=== PATIENT | female | born 1995 | race Hispanic/Latino ===

== ENCOUNTER 2017-06-21 22:56 | Inpatient (IN) | payer BC ==
[~2017-06-21 22:56] MED LIST: Bupivacaine HCl 0.5%/Epinephrine 1:200,000/PF 30 ml Vial ONE
[2017-06-22 00:03] VITALS: BMI 33.7
[2017-06-22] MEDS: Lactated Ringer's 1,000 ML IV SCH ×4 (00:20→18:12)
[2017-06-22] MEDS ORDERED: LR / Pitocin 40 units/1000 ml 1,000 ML IV PRN (02:03)
[2017-06-22] MEDS ORDERED: Ibuprofen 800 MG TAB PO PRN (02:03)
[2017-06-22] MEDS ORDERED: Diphenoxylate HCl/Atropine Tablet PO PRN (02:03)
[2017-06-22] MEDS ORDERED: Lidocaine 1% (PF) 30 ML VIAL SC PRN (02:03)
[2017-06-22] MEDS ORDERED: Misoprostol 200 MCG TAB PR PRN (02:03)
[2017-06-22] MEDS ORDERED: Acetaminophen 500 MG TAB PO PRN (02:03)
[2017-06-22] MEDS ORDERED: Ondansetron HCl/PF 4 MG/2 ML Vial IVP PRN ×3 (02:03→20:30)
[2017-06-22] MEDS ORDERED: Carboprost 250 MCG/ML AMP IM PRN (02:03)
[2017-06-22] MEDS ORDERED: Lactated Ringer's 1,000 ML IV SCH (02:15)
[2017-06-22 02:30] LABS: ALT (SGPT) 15 U/L (8-55); AST (SGOT) 14 U/L (5-34); Alkaline Phosphatase 256 U/L (40-150); Anion Gap 14 mmol/L (10-20); BUN (Urea Nitrogen) 11 mg/dL (7.0-18.7); Bilirubin, Total 0.3 mg/dL (0.2-1.2); Calc. Creatinine Clearance 200 mL/min (70-130); Calcium 8.7 mg/dL (7.8-10.44); Carbon Dioxide 20 mmol/L (22-29); Chloride 106 mmol/L (98-107); Estimated GFR-MDRD Greater than 90
[2017-06-22 02:40] LABS: #Monocytes 0.5 thou/uL (0.11-0.59); #Neutrophils 4.3 thou/uL (1.40-6.50); %Basophils 0.6 % (0.0-1.0); %Eosinophils 0.6 % (0.0-10.0); %Lymphocytes 28.6 % (21.0-51.0); %Monocytes 7.6 % (0.0-10.0); Hematocrit 30.5 % (36.0-47.0); Mean Platelet Volume 10.4 fL (7.4-10.4); Red Blood Cell (RBC) Count 3.62 mill/uL (4.20-5.40); White Blood Cell (WBC) Count 6.9 thou/uL (4.8-10.8)
[2017-06-22 04:05] LABS: Bilirubin Negative (Negative); Blood, Urine Trace (Negative); Glucose, Urine (Dipstick) Negative (Negative); Ketone, Urine Negative (Negative); Nitrite Negative (Negative); Protein, Urine (Dipstick) 300 mg/dL (Neg-Trace); Urobilinogen 0.2 mg/dL (0.2-1.0)
[2017-06-22 04:08] LABS: Bacteria/HPF 1+ HPF (None Seen); Hyaline Casts/LPF 0-3 HYALINE CAST LPF (0-3 Hyaline)
[2017-06-22] MEDS ORDERED: LR 500 ML/Oxytocin 10 units 500 ML IV SCH (04:15)
--- NOTE | 2017-06-22 09:04 | PDOC.LDHP ---
Labor and Delivery H&P Chief complaint: scheduled induction HPI: Pt is a 21yo G1 @ 40.5 weeks for sched IOL for prolonged . Current gestational age (weeks): 40 Due date: 06/17/17 Dating criteria: first trimester ultrasound Grav: 1 Para: 0 OB History Details: lscope, cystectomy @ 13 weeks Current complications: other (see lscope) Abnormal US findings: No (94%) Current medications: pre-isela vitamins Previous surgical history: cholecystectomy, other (lscope R ov cystectomy during preg) Allergies/Adverse Reactions: Allergies Allergy/AdvReac Type Severity Reaction Status Date / Time No Known Allergies Allergy Verified 04/03/17 20:27 Social history: none - Physical Exam Abnormal vital signs: mild range BP Lungs: nonlabored breathing Abdomen: gravid Extremeties: trace edema FHT: category 1 (early decels noted, min-mod variability, accels noted within last hour) [place] contractions every: 3 - Vaginal Exam cm dilated: 5 Effacement: 50% Station: -1 - OB Labs Blood type: O RH: positive Antibody Screen: negative HIV: negative RPR: negative HEPSAg: negative 1 hour GCT: negative GBS: negative Urine drug screen: not done Rubella: immune - Assessment L&D Assessment: medically indicated induction - Plan Plan: admit to L&D, cervical ripening, labor augmentation if indicated, informed consent obtained, anesthesia consult for pain management -: A/P G1@ 40.5 IOL, sp removal of [place] Balloon placed overnight, AROM this AM w thin meconium, internal monitors placed to better assess ctx pattern and FHT. BP normal to mild range this AM, isolated severe range overnight that was positional, CMP WNL, Pr:Cr elevated, discussed w pt Magnesium for seizure prophylaxis if severe range BP noted.
--- NOTE | 2017-06-22 12:44 | PDOC.LDPN ---
Labor & Delivery Progress Note - Subjective Subjective: painful contractions - Objective Vital signs reviewed and normal: yes (with occ mild range noted) General: breathing through contractions Dilation: 6 Effacement: 90% Station: 0 FHT: category 1 AROM: meconium stained fluid (thin meconium) IUPC placed: yes FSE placed: yes - Assessment (1) 40 weeks gestation of Code(s): Z3A.40 - 40 WEEKS GESTATION OF Current Visit: Yes Status : Acute Plan: continue plan of care, labor augmentation
[2017-06-22] MEDS ORDERED: Dexamethasone 20 MG/5 ML VIAL ONE (15:15)
[2017-06-22] MEDS ORDERED: Ondansetron HCl/PF 4 MG/2 ML Vial ONE ×2 (15:15→19:44)
[2017-06-22] MEDS ORDERED: Fentanyl 4 mcg/Marc 0.1% Cadd 100 ML ONE (16:56)
--- NOTE | 2017-06-22 16:58 | PDOC.LDPN ---
Labor & Delivery Progress Note - Subjective Subjective: painful contractions - Objective Abnormal vital signs: systolic 150s General: breathing through contractions Dilation: 6 Effacement: 90% Station: -1 FHT: category 1 [place] contractions every: 2 - Assessment (1) 40 weeks gestation of Code(s): Z3A.40 - 40 WEEKS GESTATION OF Current Visit: Yes Status : Acute Plan: continue plan of care, other (epidural requested) -: Arrest of dilation at 6cm, discussed unchanged since 1145, discussed indication for CS now vs. epidural and recheck in 2 hours. If no significant change at next check plan for CS for arrest of dilation.
[2017-06-22] MEDS ORDERED: Bicitra 30 ML UDCUP PO SCH (19:00)
[2017-06-22] MEDS ORDERED: CEFAZOLIN/Water 2 GM/20 ML SYRINGE SLOW IVP SCH (19:00)
--- NOTE | 2017-06-22 19:00 | PDOC.LDPN ---
Labor & Delivery Progress Note - Subjective Subjective: comfortable - Objective Vital signs reviewed and normal: yes General: resting Dilation: 6 Effacement: 90% Station: -1 FHT: category 1 [place] contractions every: 2 - Assessment (1) 40 weeks gestation of Code(s): Z3A.40 - 40 WEEKS GESTATION OF Current Visit: Yes Status : Acute Plan: other (to OR for CS) -: A/P: 21yo G1 @ 40.5 IOL for prolonged with cervix unchanged from / at 1145 despite adequate contractions. Counseled for recommendation for 1CS.
[2017-06-22] MEDS ORDERED: Fentanyl 100 MCG/2 ML VIAL ONE (19:18)
[2017-06-22] MEDS ORDERED: Morphine PF 1 MG/ML SYR ONE (19:43)
[2017-06-22] MEDS ORDERED: Oxytocin 10 UNITS/ML VIAL ONE (19:43)
[2017-06-22] MEDS ORDERED: Dexamethasone 4 mg/ml Vial ONE (19:43)
--- NOTE | 2017-06-22 20:19 | PDOC.OPDEL ---
OB Operative/Delivery Note Delivery Dr/Surgeon: Estiven Assist: Cristobal Pre-Delivery Diagnosis: arrest of dilation (6cm) Procedure/Post Delivery Dx: primary low transverse CS Weeks gestation: 40 - Findings A Sex: male Weight: 8 lb 8 oz - 1 min: 8 - 5 min: 9 - Additional Findings/Plan Placenta delivered: manual removal findings: low transverse hysterotomy without extension, normal uterus, normal tubes, normal ovaries Estimated blood loss: 800ml Compilations/Other Findings: loose double nuchal Post delivery plan: routine recovery
[2017-06-22] MEDS ORDERED: diphenhydrAMINE 50 MG/ML VIAL IVP PRN (20:30)
[2017-06-22] MEDS ORDERED: Ketorolac Tromethamine 30 MG/ML VIAL IVP PRN (20:30)
[2017-06-22] MEDS ORDERED: Promethazine HCl 25 MG SUPP PR PRN (20:30)
[2017-06-22] MEDS ORDERED: HYDROmorphone 2 MG/ML VIAL SLOW IVP PRN (20:30)
[2017-06-22] MEDS ORDERED: Naloxone HCl 0.4 mg/ml Vial IVP PRN ×2 (20:30)
[2017-06-22] MEDS ORDERED: Ketorolac Tromethamine 30 MG/ML VIAL IVP SCH (20:30)
[2017-06-22] MEDS ORDERED: Communication Order-Pharmacy FS SCH (20:30)
[2017-06-22] MEDS ORDERED: Promethazine HCl 25 MG/ML VIAL IM PRN (20:30)
[2017-06-22] MEDS ORDERED: Eucerin (Mineral Oil/Petrolatum,White) 30 gm Jar TOP PRN (20:30)
[2017-06-22] MEDS ORDERED: Meperidine HCl/PF 25 MG/ML VIAL SLOW IVP PRN (20:30)
[2017-06-22] MEDS ORDERED: Naloxone HCl 0.4 mg/ml Vial IV PRN (20:30)
[2017-06-22] MEDS ORDERED: Ketorolac Tromethamine 30 MG/ML VIAL ONE (21:30)
[2017-06-22] MEDS ORDERED: Meperidine HCl/PF 25 MG/ML VIAL ONE (22:34)
[2017-06-23] MEDS ORDERED: Lactated Ringer's 1,000 ML IV SCH (01:19)
[2017-06-23] MEDS ORDERED: Simethicone Chewable 80 MG TAB PO PRN (01:19)
[2017-06-23] MEDS ORDERED: Non-Formulary Item 1 EACH (Ranitidine Hcl [Acid Reducer] 75 MG) PO SCH (01:19)
[2017-06-23] MEDS ORDERED: diphenhydrAMINE 25 MG CAP PO PRN (01:19)
[2017-06-23] MEDS ORDERED: Adacel (T-DAP) 0.5 ML VIAL IM ONE (01:19)
[2017-06-23] MEDS ORDERED: Promethazine HCl 25 MG/ML VIAL IM PRN (01:19)
[2017-06-23] MEDS ORDERED: Ondansetron HCl/PF 4 MG/2 ML Vial IVP PRN (01:19)
[2017-06-23] MEDS ORDERED: Meperidine HCl/PF 25 MG/ML VIAL IM PRN (01:19)
[2017-06-23] MEDS ORDERED: Bisacodyl 10 MG SUPP PR PRN (01:19)
[2017-06-23] MEDS ORDERED: LR w/ Pitocin 40 units/1000 ML BAG IV SCH (01:19)
--- NOTE | 2017-06-23 02:03 | OP ---
DATE OF PROCEDURE: 06/22/2017 PREOPERATIVE DIAGNOSES: 1. A 40 weeks and 5 days, induction of labor for prolonged . 2. Arrest of active phase at 6 cm. POSTOPERATIVE DIAGNOSIS: Status post primary low transverse section. PROCEDURES PERFORMED: Primary low transverse section. SURGEON: Oz Jean-Baptiste D.O. PARTS PICKER: Silvestre Jain M.D. ANESTHESIA: Epidural. ESTIMATED BLOOD LOSS: 800 mL. URINE OUTPUT: 100 mL. COMPLICATIONS: None. INTRAOPERATIVE FINDINGS: 1. Vigorous male , Apgars 8 and 9, weight 8 pounds 8 ounces to nursery. 2. Low transverse hysterotomy without extension. 3. Normal appearing uterus, tubes, and ovaries bilaterally. 4. Fundus firm after delivery of the placenta and closure of the hysterotomy. PROCEDURE DETAILS: The patient was taken back to the OR with IV fluids running. Once she was in th e OR, she was placed in dorsal supine position with left lateral tilt. Yeung catheter and epidural catheter have previously been placed and were functioning well. SCDs were applied to lower extremit ies. The patient received 2 grams of Ancef for surgical infection prophylaxis. The patient's abdom en was prepped and draped in normal fashion for section and the surgeons were scrubbed in. The abdomen was tested and anesthesia was found to be adequate. A Pfannenstiel skin incision was m jose eduardo with the scalpel. Skin incision was carried down through the subcutaneous tissue to the fascia. Once the fascia was reached, it was incised in the midline and extended superior laterally using c urved Sánchez scissors. Anyi clamps were placed at the superior border of the fascia, which was petra ply and bluntly dissected off the rectus abdominis muscles. The fascia was then dissected down infe riorly towards the pubic symphysis in similar fashion. The rectus muscles were bluntly in the midline. The peritoneum was bluntly entered and stretched laterally. An Laz O retractor wa s placed into the peritoneal cavity for retraction, visualization, and protection of the wound. A b ladder flap was created using Metzenbaum scissors and the bladder flap was dissected away from the p lanned hysterotomy site. The hysterotomy was created with the scalpel. The uterus was then stretch ed superolaterally using the Madsen maneuver. Clear fluid was noted. The infant's head was then deli vanna through the incision. A loose double nuchal cord was noted and reduced. The infant's shoulde rs and body were then delivered through the incision. The nose and mouth were suctioned. The cord was doubly clamped and cut, and the infant was handed off to special care nurses in attendance. Cor d blood was collected and the placenta was delivered. The uterus was exteriorized, massaged to firm , cleared of clot and debris, and then returned to the abdominal cavity. The hysterotomy was inspec daquan with no extensions noted. Monocryl suture was used to close the hysterotomy in a running locked fashion. After the hysterotomy was closed, it was inspected with no areas of bleeding noted. The hysterotomy and pericolic gutters were irrigated and suctioned dry. Hysterotomy was inspected again with no bleeding noted. The Laz O retractor was removed. The abdominal wall muscles and fascia were inspected. The fascia was closed with PDS suture from [id number] and tied separately in the midline. Subcutaneous tissue was irrigated and suctioned dry. Any small areas of bleeding wer e controlled with Bovie cauterization. The subcutaneous tissue was reapproximated with chromic sutu re. The skin was closed with 4-0 Monocryl and dressed with Dermabond dressing. The patient was jackelyn en to recovery room in good condition.
[2017-06-23 05:45] LABS: Hematocrit 30.2 % (36.0-47.0); Mean Platelet Volume 10.4 fL (7.4-10.4); Red Blood Cell (RBC) Count 3.49 mill/uL (4.20-5.40); White Blood Cell (WBC) Count 14.9 thou/uL (4.8-10.8)
[2017-06-23] MEDS: Ibuprofen 800 MG TAB PO SCH ×3 (06:28→21:40)
--- NOTE | 2017-06-23 08:17 | PDOC.PP ---
Post Progress Note Post Day #: 1 Subjective: mild pain, no PIH sx PO intake tolerated: yes Flatus: yes Ambulation: yes Vital Signs (12 hours) Temp Pulse Resp BP Pulse Ox 06/23/17 04:15 98.6 F 73 20 137/95 H 96 06/23/17 01:56 98.3 F 69 20 137/92 H 96 06/23/17 00:50 97.7 F 72 20 152/100 H 96 06/22/17 20:30 98.6 F 78 20 Weight Weight 209 lb - Physical Examination General: NAD Respiratory: non-labored breathing Abdominal: appropriately TTP Fundus firm & at: below umb Extremities: negative homans (B) Skin: CS incision dry & intact Neurological: no gross focal deficits Psychiatric: A&Ox3, normal affect Result Diagrams: 06/23/17 05:12 06/22/17 00:18 Additional Labs: Post Labs Hep Bs Antigen Non-Reactive S/CO (NonReactive) 06/22/17 00:18 (1) 40 weeks gestation of Code(s): Z3A.40 - 40 WEEKS GESTATION OF Status: Acute (2) Mild preeclampsia Code(s): O14.00 - MILD TO MODERATE PRE-ECLAMPSIA, UNSPECIFIED TRIMESTER Status : Acute (3) Delivered by section Code(s): O82 - ENCOUNTER FOR DELIVERY WITHOUT INDICATION Status: Acute - Assessment/Plan POD1 sp 1LTCS for arrest of active phase yesterday w noted preeclampsia without severe features yesterday. BP mild range to normal, no sx of worsening disease. Cont PP care.
[2017-06-23] MEDS: Lanolin Ointment 7 GM TUBE TOP PRN (08:21)
[2017-06-23] MEDS: Docusate (Surfak) 240 MG CAP PO SCH ×2 (08:21→21:41)
[2017-06-23] MEDS: Acetaminophen/Codeine 30-300mg Tablet PO PRN ×3 (08:22→18:02)
[2017-06-23] MEDS: Famotidine 20 MG TAB PO SCH ×2 (08:22→21:42)
[2017-06-23] MEDS: Ferrous Sulfate 325 MG TAB PO SCH ×2 (08:25→21:42)
[2017-06-23] MEDS: Prenatal Vitamin 1 TAB PO SCH (08:25)
--- NOTE | 2017-06-23 10:13 | OP ---
DATE OF ENCOUNTER: 06/22/2017 PRIMARY OB: Dr. Oz Jean-Baptiste D.O. This note is a documentation that I was first assisted on a primary for Katya Casanova. PRIMARY SURGEON: Dr. Oz Jean-Baptiste D.O.
[2017-06-24] MEDS: Acetaminophen/Codeine 30-300mg Tablet PO PRN ×4 (00:21→15:42)
[2017-06-24] MEDS: Ibuprofen 800 MG TAB PO SCH ×3 (04:53→21:09)
[2017-06-24] MEDS: Famotidine 20 MG TAB PO SCH ×2 (10:25→21:33)
[2017-06-24] MEDS: Docusate (Surfak) 240 MG CAP PO SCH ×2 (10:25→21:09)
[2017-06-24] MEDS: Ferrous Sulfate 325 MG TAB PO SCH (10:26)
[2017-06-24] MEDS: Prenatal Vitamin 1 TAB PO SCH (10:26)
--- NOTE | 2017-06-24 13:30 | PDOC.PP ---
Post Progress Note Post Day #: 2 PO intake tolerated: yes Flatus: yes Ambulation: yes Vital Signs (12 hours) Temp Pulse Resp BP 06/24/17 12:42 98.1 F 70 20 133/94 H 06/24/17 12:00 98.1 F 70 20 06/24/17 08:52 98.2 F 67 18 131/85 06/24/17 07:45 98.2 F 67 18 06/24/17 04:50 97.9 F 81 18 135/82 Weight Weight 209 lb - Physical Examination General: NAD Cardiovascular: RRR Respiratory: clear to auscultation bilaterally Abdominal: no distention, appropriately TTP Fundus firm & at: umb-2 Extremities: negative homans (B) Skin: CS incision dry & intact Neurological: no gross focal deficits Psychiatric: normal affect Result Diagrams: 06/23/17 05:12 06/22/17 00:18 Additional Labs: Post Labs Hep Bs Antigen Non-Reactive S/CO (NonReactive) 06/22/17 00:18 - Assessment/Plan VSSAF Mild range BP x 1, no sx PIH. Will monitor until tomorrow. Appropriate postop milestones, pain well controlled. . Rh pos RImm Cont Pop Care.
[2017-06-25] MEDS: Ibuprofen 800 MG TAB PO SCH ×2 (06:15→13:24)
[2017-06-25] MEDS: Acetaminophen/Codeine 30-300mg Tablet PO PRN ×3 (06:16→18:49)
[2017-06-25] MEDS: Ferrous Sulfate 325 MG TAB PO SCH ×2 (06:35→12:06)
--- NOTE | 2017-06-25 08:42 | PDOC.PP ---
Post Progress Note Post Day #: 3 Subjective: doing well, no concerns PO intake tolerated: yes Flatus: yes Ambulation: yes Weight Weight 209 lb - Physical Examination General: NAD Respiratory: non-labored breathing Abdominal: no distention Extremities: negative homans (B) Skin: CS incision dry & intact, no rash Neurological: no gross focal deficits Psychiatric: A&Ox3 Result Diagrams: 06/23/17 05:12 06/22/17 00:18 Additional Labs: Post Labs Hep Bs Antigen Non-Reactive S/CO (NonReactive) 06/22/17 00:18 (1) 40 weeks gestation of Code(s): Z3A.40 - 40 WEEKS GESTATION OF Status: Acute (2) Mild preeclampsia Code(s): O14.00 - MILD TO MODERATE PRE-ECLAMPSIA, UNSPECIFIED TRIMESTER Status : Acute (3) Delivered by section Code(s): O82 - ENCOUNTER FOR DELIVERY WITHOUT INDICATION Status: Acute - Assessment/Plan POD 3 doing well, plan for DC when baby DC, normal to mild range BP with no PIH sx. BP check w incision check next week in office.
[2017-06-25 09:18] VITALS: BP 139/94; TEMP 97.8
[2017-06-25] MEDS: Docusate (Surfak) 240 MG CAP PO SCH (12:05)
[2017-06-25] MEDS: Famotidine 20 MG TAB PO SCH (12:05)
[2017-06-25] MEDS: Prenatal Vitamin 1 TAB PO SCH (12:05)
[2017-06-25] MEDS: Lanolin Ointment 7 GM TUBE TOP PRN (18:48)
== END 2017-06-25 19:22 | disposition home or self-care (01) | DRG 766 ==
LOC: L&D/OP 22:56 → L&D 23:26 → 3SW 06-23 00:41
PROVIDERS: ADMIT Obstetrics & Gynecology; ATTEND Obstetrics & Gynecology
PROC: 0U7C7ZZ Dilation of Cervix, Via Natural or Artificial Opening (ICD-10-PCS; 2017-06-21)
PROC: 10907ZC Drainage of Amniotic Fluid, Therapeutic from Products of Conception, Via Natural or Artificial Opening (ICD-10-PCS; 2017-06-21)
PROC: 3E0P3VZ Introduction of Hormone into Female Reproductive, Percutaneous Approach (ICD-10-PCS; 2017-06-21)
PROC: 10D00Z1 Extraction of Products of Conception, Low, Open Approach (ICD-10-PCS; principal; 2017-06-22)
DX: O48.0 Post-term pregnancy (principal); O77.0 Labor and delivery complicated by meconium in amniotic fluid; O69.81X0 Labor and delivery complicated by cord around neck, without compression, not applicable or unspecified; Z3A.40 40 weeks gestation of pregnancy; Z37.0 Single live birth; O62.1 Secondary uterine inertia; O14.05 Mild to moderate pre-eclampsia, complicating the puerperium
CPT/HCPCS: 36415; 80053; 81001; 82570; 84156; 85025; 85027; 86780; 87340; C1726; J0595; J0670; J1100; J1885; J2175; J2274; J2405; J2590; J3010; J7120

== ENCOUNTER 2022-12-08 09:58 | Emergency (ER) | payer BC, OTHER, SELFPAY ==
[~2022-12-08 09:58] MED LIST changes: -Bupivacaine HCl 0.5%/Epinephrine 1:200,000/PF 30 ml Vial ONE; +Iopamidol-370 76% 500 ML MDV (1 ML CHARGE) ONE
[2022-12-08] MEDS ORDERED: Ondansetron PF 4 MG/2 ML Vial ONE ×2 (10:27→14:23)
[2022-12-08 11:04] LABS: Hemoglobin 14.6 g/dL (12.0-16.0); Mean Corpuscular HGB CONC 33.3 g/dL (32.0-36.0); Mean Corpuscular Hemoglobin 31.1 pg (27.0-31.0); Mean Corpuscular Volume 93.4 fl (78.0-98.0); Mean Platelet Volume 8.3 fL (7.4-10.4); Platelet Count 254 10x3/uL (130-400); RBC Distribution Width 11.7 % (11.5-14.5); White Blood Cell (WBC) Count 12.7 10x3/uL (4.8-10.8)
[2022-12-08 11:07] LABS: BHCG - Serum Negative (NEGATIVE); Pregs Control Background? CLEAR/WHITE (CLR/WHITE); Pregs Control Bar Appear? YES (CONTROL BAR)
[2022-12-08 11:25] LABS: ALT (SGPT) 28 U/L (8-55); AST (SGOT) 23 U/L (5-34); Albumin 4.7 g/dL (3.5-5.0); Alkaline Phosphatase 105 U/L (40-110); Anion Gap 14 mmol/L (10-20); BUN (Urea Nitrogen) 8 mg/dL (7.0-18.7); Bilirubin, Total 0.7 mg/dL (0.2-1.2); Calc. Creatinine Clearance 0 mL/min (70-130); Calcium 9.4 mg/dL (7.8-10.44); Carbon Dioxide 22 mmol/L (22-29); Chloride 107 mmol/L (98-107); Estimated GFR 101; Globulin 3.6 g/dL (2.4-3.5); Glucose 128 mg/dL (70-105); Lipase 23 U/L (8-78); Potassium 3.6 mmol/L (3.5-5.1); Protein, Total 8.3 g/dL (6.0-8.3); Sodium 139 mmol/L (136-145)
[2022-12-08 11:45] LABS: Band 3 % (5-11); Eosinophils 1 % (0-10); Lymphocytes 4 % (21-51); MDiff Complete? YES; Monocytes 3 % (0-10); Neutrophil 89 % (42-75); Platelet Morphology Comment Appears Adequate; RBC Morphology Normal
[2022-12-08 12:18] LABS: Bilirubin Negative (Negative); Blood, Urine Negative (Negative); Clarity Clear (Clear); Glucose, Urine (Dipstick) Normal (Negative); Ketone, Urine Negative (Negative); Leukocyte Negative Leu/uL (Negative); Nitrite Negative (Negative); Protein, Urine (Dipstick) Negative (Neg-Trace); Specific Gravity, Urine 1.013 (1.002-1.036); Urobilinogen Normal mg/dL (Less than 2); pH, Urine 7.5 (5.0-9.0)
[2022-12-08] MEDS ORDERED: Ketorolac Tromethamine 30 MG/ML VIAL ONE (12:47)
== END 2022-12-08 15:19 | disposition home or self-care (01) ==
LOC: ERS 09:58
DX: N83.201 Unspecified ovarian cyst, right side (principal)
CPT/HCPCS: 36415; 74177; 76856; 80053; 81003; 83690; 84703; 85025; 96361; 96374; 96375; 96376; J1885; J2405; Q9967

== ENCOUNTER 2023-01-11 21:54 | Emergency (ER) | payer OTHER ==
[2023-01-11 22:51] LABS: #Basophils 0.1 thou/uL (0.0-0.2); #Eosinphils 0.2 thou/uL (0.0-0.7); #Monocytes 0.6 thou/uL (0.11-0.59); #Neutrophils 5.4 thou/uL (1.40-6.50); %Basophils 0.8 % (0.0-1.0); %Monocytes 6.8 % (0.0-10.0); %Neutrophils 61.2 % (42.0-75.0); Hemoglobin 14.3 g/dL (12.0-16.0); Mean Corpuscular HGB CONC 33.3 g/dL (32.0-36.0); Mean Corpuscular Hemoglobin 30.6 pg (27.0-31.0); Mean Corpuscular Volume 91.9 fl (78.0-98.0); Mean Platelet Volume 10.1 fL (7.4-10.4); Platelet Count 288 10x3/uL (130-400); RBC Distribution Width 12.3 % (11.5-14.5); Red Blood Cell (RBC) Count 4.68 mill/uL (4.20-5.40); White Blood Cell (WBC) Count 8.9 10x3/uL (4.8-10.8)
[2023-01-11] MEDS ORDERED: Morphine 4 MG/ML VIAL ONE (23:12)
[2023-01-11] MEDS ORDERED: Ondansetron PF 4 MG/2 ML Vial ONE (23:13)
[2023-01-11 23:20] LABS: Glucose 73 mg/dL (70-105)
[2023-01-11 23:22] LABS: Albumin 4.8 g/dL (3.5-5.0)
[2023-01-11 23:24] LABS: Chloride 107 mmol/L (98-107); Potassium 3.6 mmol/L (3.5-5.1); Sodium 137 mmol/L (136-145)
[2023-01-11 23:25] LABS: Globulin 4.2 g/dL (2.4-3.5)
[2023-01-11 23:26] LABS: Anion Gap 14 mmol/L (10-20); Carbon Dioxide 20 mmol/L (22-29)
[2023-01-11 23:27] LABS: Bilirubin, Total 0.3 mg/dL (0.2-1.2)
[2023-01-11 23:28] LABS: Alkaline Phosphatase 185 U/L (40-110); Calc. Creatinine Clearance 0 mL/min (70-130); Estimated GFR 96
[2023-01-11 23:30] LABS: AST (SGOT) 29 U/L (5-34); BUN (Urea Nitrogen) Less than 20 mg/dL (7.0-18.7)
[2023-01-11 23:31] LABS: ALT (SGPT) 16 U/L (8-55)
[2023-01-12 00:09] LABS: Bilirubin Negative (Negative); Blood, Urine Negative (Negative); Clarity Clear (Clear); Glucose, Urine (Dipstick) Normal (Negative); Ketone, Urine Negative (Negative); Leukocyte Negative Leu/uL (Negative); Nitrite Negative (Negative); Protein, Urine (Dipstick) Negative (Neg-Trace); Specific Gravity, Urine 1.002 (1.002-1.036); Urobilinogen Normal mg/dL (Less than 2)
[2023-01-12 00:10] LABS: Pregnancy Test - Urine (BHCG) Negative (Negative); Pregu Control Background? CLEAR/WHITE (CLR/WHITE); Pregu Control Bar Appear? YES (CONTROL BAR); Specific Gravity 1.002 (1.002-1.036)
[2023-01-12] MEDS ORDERED: fentaNYL 50 mcg/mL 1 mL Vial ONE (00:47)
[2023-01-12] MEDS ORDERED: Ketorolac Tromethamine 30 MG/ML VIAL ONE (00:47)
== END 2023-01-12 01:25 | disposition home or self-care (01) ==
LOC: ERS 21:54
DX: N83.201 Unspecified ovarian cyst, right side (principal)
CPT/HCPCS: 36415; 76856; 80053; 81003; 81025; 85025; 96374; 96375; J1885; J2270; J2405; J3010

== ENCOUNTER 2023-04-01 08:43 | Outpatient (CLI) | payer BC, OTHER | END 2023-04-01 08:44 | disposition home or self-care (01) | LOC: NM 08:43 | PROVIDERS: ATTEND Internal Medicine | DX: R11.2 Nausea with vomiting, unspecified (principal) | CPT/HCPCS: 78264; A9541 ==